=== PATIENT | male | born 2000 | race Hispanic/Latino ===

== ENCOUNTER 2022-01-18 20:32 | Emergency (ER) | payer OTHER ==
[~2022-01-18] VITALS: Ht 167.6 cm; Wt 130.6 kg
[2022-01-18 21:21] VITALS: BP 139/78
== END 2022-01-18 23:34 | disposition home or self-care (01) ==
LOC: EDH 20:32
DX: M79.671 Pain in right foot (principal); M79.672 Pain in left foot